=== PATIENT | female | born 1955 | race Caucasian/White ===

== ENCOUNTER 2020-10-14 06:12 | Observation (INO) | payer OTHER ==
[~2020-10-14] VITALS: Ht 170.2 cm; Wt 94.8 kg
[~2020-10-14 06:12] MED LIST: AMLODIPINE BESY10 MG PO; COZAAR 25 MG TA25 M1 PO; METFORMIN HCL500 M3 PO; SUPER THERAVIT1 EACH PO; TRAMADOL HCL50 MG PO
[2020-10-14 06:42] VITALS: BP 151/88
[2020-10-14 12:20] VITALS: BP 159/86
[2020-10-14 14:05] VITALS: BP 149/74
[2020-10-14 19:32] VITALS: BP 151/81
--- NOTE | 2020-10-14 20:37 | NUR ---
PATIENT ADMITTED FROM OR WITH ORIF RIGHT TIBIAL PLATEAU, IMMOBILIZER TO RIGHT LEG, DRESSING TO RIGHT LEG. PATIENT DENIES PAIN UPON ARRIVAL TO THE UNIT. PATIENT C/O NAUSEA MOST OF THE SHIFT, FIRST ZOFRAN 4MG IV GIVEN, WITH SOME RELIEF, BUT THIS RN NOTIFIED DR CHINCHILLA OF NEEDING MORE NAUSEA MEDICATION, RECEIVED ORDER FOR COMPAZINE IV, GIVEN WITH GOOD RELIEF. PATIENT BLOOD SUGAR CHECKED, 249 AT DINNER SHE RECEIVED 4 UNITS OF LISPRO. PATIENT ONLY HAD DESSERT AND JELLO, REFUSED THE MEAL. PATIENT C/O UNABLE TO URINATE, BLADDER SCAN DONE, 840CC NOTED, STRAIGHT CATH DONE, PATIENT HAD GOOD RELIEF. PATIENT VERY AGITATED AND IRRITABLE PRIOR TO STRAIGHT CATH. PATIENT ASSISTED UP TO THE BSC, WITH 1 ASSIST. PATIENT WANTS TO GO HOME IN AM. RIGHT HAND IV IN PLACE, NOTIFIED DR CHINCHILLA OF NEEDING FLUID ORDER, RECEIVED ORDER FOR 1/2 NS AT 75CC/HR. PATIENT ALSO GIVEN IV ANTIBIOTIC/CLINDAMYCIN IV. PATIENT RESTING BETTER AT THE END OF THE SHIFT, REPORT GIVEN TO BELINDA/LISSETH.
--- NOTE | 2020-10-14 21:21 | NUR ---
PATIENT ADMITTED FROM OR WITH LYMPHADENECTOMY, SIMPLE NECK DISSECTION AND FULL THICKNESS SKIN GRAFT. PATIENT DENIES PAIN AND NAUSEA. RECEIVED DINNER TRAY ATE 100%. AT BEDSIDE. PATIENT HAS 2 BOBY DRAINS TO FRONT OF NECK AND BACK OF NECK, #1 EMPTIED 5 CC AND #2 EMPTIED 30CC. PATIENT HAS DRESSING TO RIGHT UPPER ABD. DRESSING C/D/I. PATIENT HAS 2 IV RIGHT AND LEFT HAND, LEFT HAND STARTED IV FLUIDS AT 125CC/HR. ADMISSION COMPLETED, REPORT GIVEN TO BELINDA/RN.
--- NOTE | 2020-10-15 07:24 | NUR ---
DR ODELL HERE TO SEE PATIENT WROTE RX'S SO THAT PATIENT CAN DC AFTER PT HAS THERAPY.
--- NOTE | 2020-10-15 07:55 | O ---
[facility] [place] [address] OPERATIVE REPORT Name: ODALYS BECK Room #: 444-P [facility] MKavya#: [id number] Admission: 10/14/20 Attend Phys: Saji Aldana, Discharge: Date of : 51 Report #: [id number] THIS REPORT FOR: cc: MUSTAPHA RIVERS MD Physician not on staff Saji Aldana DO ~ DATE OF SERVICE: 10/14/2020 PREOPERATIVE DIAGNOSIS: Right tibial plateau fracture. POSTOPERATIVE DIAGNOSIS: Right tibial plateau fracture. PROCEDURE PERFORMED: Right tibial plateau fracture open reduction and internal fixation with bone allograft. SURGEON: aSji Aldana DO LONGWALL MACHINE OPERATOR HELPER: Florinda Winters APRN ANESTHESIA: General. ANTIBIOTICS: 900 mg clindamycin. ORTHOPEDIC IMPLANTS: Synthes 3.5 mm LCP lateral proximal tibial plate. OPERATIVE INDICATIONS: The patient is a pleasant 64-year-old female who I have seen in the outpatient orthopedic clinic with complaints of right leg pain after a fall off a stool. She suffered a split depressed lateral plateau fracture with medial condylar extension. We discussed the indications, risks, benefits, and alternatives to surgery. She demonstrated understanding and wished to proceed. OPERATIVE TECHNIQUE: The patient was met in the preoperative holding area and again the risks, benefits and alternatives to surgery were reviewed with the patient. She again demonstrated understanding and wished to proceed with surgery. Surgical consent was checked for correctness. The operative extremity was initialed for verifying correct surgical site with the patient. DESCRIPTION OF PROCEDURE: The patient was then taken back to the operative suite #2 and placed on the operating table in supine position. She was administered a general anesthetic by the Department of Anesthesiology and given 900 mg of clindamycin preoperatively. A timeout protocol was performed to verify correct surgical site and procedure. All teams were in agreement. Tourniquet was placed about the patient's right thigh and the right lower extremity was sterilely prepped and draped in the usual fashion. [address] [address] OPERATIVE REPORT Name: ODALYS BECK Room #: 444-[facility] MYessicaR.#: [id number] Admission: 10/14/20 Attend Phys: Saji Aldana, Discharge: Date of : 51 Report #: [id number] Surgery began by marking out planned surgical incision in standard proximal tibial approach. A 10 blade scalpel was then used to make the skin incision overlying the previously placed markings. Bovie electrocautery was used to control hemostasis. IT band was split proximally and from the capsular tissues on the lateral aspect of the knee. A subperiosteal dissection of the proximal lateral tibial plateau was performed exposing the fracture site. Self-retaining retractors were placed within the wound. A deep 10 blade scalpel was then used to make a submeniscal arthrotomy under the lateral meniscus exposing the lateral joint line. The proximal tibia fracture was identified and the lateral wall piece was gently retracted to expose the depressed articular fragments. Utilizing a bone tamp and osteotomes, the depressed articular fragments were then elevated to the joint line. This was done under fluoroscopic guidance. These pieces were then pinned temporarily in place utilizing [place] wires. The lateral wall pieces were then reduced back and pinned in place again verifying reduction under C-arm fluoroscopy. Next, a 3.5 mm proximal lateral tibial plate was placed on the proximal tibia and a periarticular clamp was then used to reduce the condylar width, which revealed near anatomic reduction. This plate was then temporarily pinned into place. It was then provisionally fixated to the tibial shaft utilizing a single 3.5 mm cortical screw. Under fluoroscopic guidance, the proximal plate holes were then filled utilizing locking screws in standard fashion under ____. This secured articular reduction. The remaining screw holes were then filled in standard fashion. There was a second 3.5 mm cortical screw placed in the distal most hole of the plate. Prior to closing down the lateral wall and final fixation, cancellous bone chips were then packed into the defect. The wound was then thoroughly irrigated with normal saline. The periosteal tissues along with IT band were then closed with 0 Vicryl in [id number] fashion. The subcuticular tissues were then closed with 2-0 Vicryl in subcuticular fashion. The skin was then closed with 3-0 nylon in [id number] fashion. Local anesthetic was then injected. Sterile dressings were then applied and the patient was placed into a knee immobilizer. She was then awakened from general anesthesia and transferred to postoperative recovery in stable condition. ESTIMATED BLOOD LOSS: 50 mL. TOURNIQUET TIME: 70 minutes. COMPLICATIONS: None. [address] [address] OPERATIVE REPORT Name: ODALYS BECK Room #: 444-P [facility] Marlene M.R.#: [id number] Admission: 10/14/20 Attend Phys: Saji Aldana, Discharge: Date of : 51 Report #: [id number] SPECIMENS SENT TO PATHOLOGY: None. CONDITION: Stable. DISPOSITION: To the Postanesthesia Care Unit and then home. <ELECTRONICALLY SIGNED> By: Saji Aldana DO 10/15/20 [id number] Saji Aldana DO /nt
[2020-10-15 08:00] VITALS: BP 159/91
[2020-10-15 09:45] VITALS: BP 159/91
--- NOTE | 2020-10-15 09:53 | NUR ---
ASSESSMENT: CM REVIEWED CHART AND SPOKE WITH PT AND HER SPOUSE. PT IS S/P ORIF TIBIAL PLATEAU. PT REPORTS SHE LIVES IN A HOUSE WITH HER AND ADULT SON. PT REPORTS HAVING ABOUT TWO STEPS TO ENTER THE HOME AND NO STEPS SHE HAS TO USE ONCE INSIDE. PT REPORTS SHE HAS A WALKER AT HOME, CRUTCHES, AND HAS BEEN USING A ROLLING CHAIR AND IS ABLE TO TRANSFER HERSELF. PHYSICAL THERAPY MET WITH PATIENT AND PT IS DECLINING THE NEED FOR ANY OTHER EQUIPTMENT AT HOME AND PLANS ON DOING THINGS THE WAY SHE WAS DOING PRIOR TO ADMISSION. PTS AND SON AVAILABLE TO HELP IF NEEDED. PT REPORTS SHE IS TO FOLLOW UP WITH THE PHYSICIAN IN A WEEK AND THEN LIKELY GO FROM THERE AND HE WILL ARRANGED PT IN [facility]. PT REPORTS NO FURTHER NEEDS FROM PRIOR TO DISCHARGE. CASE CLOSED.
[2020-10-15 10:09] VITALS: BP 159/91
--- NOTE | 2020-10-15 10:22 | NUR ---
DISCHARGE PAPERS REVIEWED SIGNED AND COPY IN CHART. IV ACSESS DCD. ALL BELONGINGS PACKED AND SENT WITH PATIENT. AT BEDSIDE. PT W/O PAIN OR RESP DISTRESS AT DISCHARE.
--- NOTE | 2020-10-20 07:55 | EKG ---
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: ANDREZ : 1955 Requested By: Margy Christensen Order Number: [id number] MD: Kit Willingham Measurements Intervals [place] Rate: 86 P: 49 WA: 154 QRS: -2 QRSD: 101 T: 15 QT: 379 QTc: 454 Interpretive Statements Sinus rhythm Probable left atrial enlargement Artifact in lead(s) I,II,aVR,aVL,V1,V3,V4,V5,V6 No previous ECG available for comparison Electronically Signed On 10-14-2020 7:23:38 RN DOCUMENT IMPROVEMENT by Kit Willingham [email or web address] <ELECTRONICALLY SIGNED> By: Kit Willingham MD, [facility] 10/14/20722 6 6 Kit Willingham MD, [facility] /EPI
== END 2020-10-15 10:35 | disposition home or self-care (01) ==
LOC: TBA 06:12 → 4S 06:12 → EDBD 06:12 → 4S 06:12 → PRE 11:55 → 4S 10-15 10:35
PROVIDERS: ADMIT Orthopaedic Surgery; ATTEND Orthopaedic Surgery
DX: S82.141A Displaced bicondylar fracture of right tibia, initial encounter for closed fracture (principal); I10 Essential (primary) hypertension; E11.9 Type 2 diabetes mellitus without complications; R11.0 Nausea; W17.89XA Other fall from one level to another, initial encounter; Y93.89 Activity, other specified; Y92.89 Other specified places as the place of occurrence of the external cause; Y99.8 Other external cause status; Z79.84 Long term (current) use of oral hypoglycemic drugs; Z79.899 Other long term (current) drug therapy
CPT/HCPCS: 10102; 50010; 50101; 50386; 53170; 56524; 56527; 56667; 57091; 57103; 57180; 58408; 58409; 58410; 58411; 62110; 62900; 70005